=== PATIENT | male | born 1975 | race Caucasian/White ===

== ENCOUNTER → 2021-08-15 11:02 | Outpatient (BNVA) | payer OTHER, SELFPAY | PROVIDERS: Visit Provider Emergency Medicine | DX: R10.31 Right lower quadrant pain (principal); R10.32 Left lower quadrant pain; Z20.2 Contact with and (suspected) exposure to infections with a predominantly sexual mode of transmission | CPT/HCPCS: 81000; 87086; 87491; 87591 ==

== ENCOUNTER 2021-08-30 14:36 | Outpatient (CLI) | payer OTHER, SELFPAY ==
--- NOTE | 2021-08-30 15:15 | US_ITS ---
WS: [id number] TESTICULAR ULTRASOUND HISTORY: R10.31 - Right lower quadrant pain COMPARISON: None available. TECHNIQUE: Real-time and color Doppler imaging or utilized to perform a testicular ultrasound. Right testicle: 3.3 cm x 2.4 cm x 1.9 cm. Normal size and echogenicity. No mass or torsion. Normal color Doppler is present throughout. Systolic and diastolic velocities are both present. Small minimally complex hydrocele. Right epididymis: Normal epididymis with no increased vascularity. Left testicle: 3.1 cm x 2.2 cm x 1.7 cm. Normal size and echogenicity. No mass or torsion. Normal color Doppler is present throughout. Systolic and diastolic velocities are both present. No significant hydrocele. Left epididymis: Spermatocele measures 3 x 2 x 3 mm. Small LEFT varicocele. There is increase during Valsalva just greater than 3 mm. US/US scrotum [id number] IMPRESSION: 1. No testicular mass or torsion. 2. No orchitis. 3. Small LEFT varicocele. 4. Small LEFT spermatocele. 5. Minimally complex RIGHT hydrocele.
== END 2021-08-30 14:37 | disposition home or self-care (01) ==
PROVIDERS: Visit Provider Emergency Medicine
DX: R10.31 Right lower quadrant pain (principal); R10.32 Left lower quadrant pain; I86.1 Scrotal varices; N43.41 Spermatocele of epididymis, single; N43.3 Hydrocele, unspecified
CPT/HCPCS: 76870

== ENCOUNTER 2021-10-07 12:15 | Outpatient (CLI) | payer OTHER, SELFPAY ==
--- NOTE | 2021-10-07 13:30 | CT_ITS ---
WS: [id number] CT ABDOMEN AND PELVIS WITH CONTRAST HISTORY: abd pain and bloating, left-sided abdominal pain. Recent hernia surgery. TECHNIQUE: Imaging performed of the abdomen and pelvis with IV contrast. Single phase imaging of the abdomen. Coronal and sagittal reformats are submitted. All CT scans at [facility] use at [address] one of these dose optimization techniques: automated exposure control; mA and/or kV adjustment per patient size (includes targeted exams where dose is matched to clinical indication); or iterative re construction. IV CONTRAST: Omnipaque 350; 95 mL IV. Oral contrast: Yes. DLP: 1032.63 mGy.cm COMPARISON: None available. Lower thorax: Lung bases are clear. Heart is normal size. Small hiatal hernia. Liver/biliary system: Normal size with no intrahepatic dilatation. Normal portal vein. Gallbladder: Mildly contracted gallbladder is probably due to nonfasting state. Pancreas: Normal size pancreas and pancreatic duct. No adjacent inflammation. Spleen: Normal size spleen. No mass or infarct. Adrenal glands: Normal. Right kidney: Normal. Left kidney: Normal. Aorta: Normal. Lymphadenopathy: None. Free fluid: None. GI tract: Stomach is moderately well distended. Mixture of food products and contrast within the stom ach. Scattered contrast throughout a nondilated small bowel. The appendix is not definitely visualize d. There is moderate constipation throughout the colon. Greatest amount of constipation in the RIGHT colon and transverse colon. Abdominal wall: Unremarkable abdominal wall. No hernia. Pelvis: No free fluid or adenopathy within the pelvis. No fluid collections. Bones: Unremarkable. CT/CT abdomen pelvis w con* [id number] IMPRESSION: 1. No acute abdominal or pelvic abnormalities are identified. 2. No ascites or lymphadenopathy. 3. Moderate constipation RIGHT and transverse colon. No obstruction. 4. Moderate distention of the stomach due to mixture of food products and oral contrast.
[2021-10-07] MEDS: iohexol 350 mg/mL 100 mL Btl IV (13:49)
== END 2021-10-07 12:16 | disposition home or self-care (01) ==
LOC: RAD 12:17
PROVIDERS: PCP Family Medicine; Visit Provider Family Medicine
DX: M54.30 Sciatica, unspecified side (principal); R10.9 Unspecified abdominal pain; K59.00 Constipation, unspecified; R14.0 Abdominal distension (gaseous)
CPT/HCPCS: 74177

== ENCOUNTER → 2022-02-17 15:39 | Outpatient (BNVA) | payer OTHER, SELFPAY | PROVIDERS: PCP Family Medicine; Visit Provider Family Medicine | DX: J06.9 Acute upper respiratory infection, unspecified (principal) | CPT/HCPCS: 87071; 87400; 87880 ==

== ENCOUNTER → 2022-09-19 14:19 | Outpatient (BNVA) | payer OTHER, SELFPAY | PROVIDERS: PCP Family Medicine; Visit Provider Family Medicine | DX: M79.672 Pain in left foot (principal) | CPT/HCPCS: 84550; 85651; 86140 ==

== ENCOUNTER → 2023-08-22 09:38 | Outpatient (BNVA) | payer OTHER, SELFPAY | PROVIDERS: PCP Family Medicine; Visit Provider Nurse Practitioner Family | DX: Z71.1 Person with feared health complaint in whom no diagnosis is made (principal); Z11.3 Encounter for screening for infections with a predominantly sexual mode of transmission; Z20.2 Contact with and (suspected) exposure to infections with a predominantly sexual mode of transmission | CPT/HCPCS: 87491; 87591; 87806 ==

== ENCOUNTER 2023-09-11 11:14 | Outpatient (CLI) | payer OTHER, SELFPAY ==
[2023-09-12 10:50] LABS: HSV 2 IGG Type Specific AB <0.90 index
== END 2023-09-11 11:15 | disposition home or self-care (01) ==
LOC: LAB 11:15
PROVIDERS: PCP Family Medicine; Visit Provider Nurse Practitioner
DX: R21 Rash and other nonspecific skin eruption (principal)
CPT/HCPCS: 36415; 86695; 86696